=== PATIENT | female | born 1950 | race Hispanic/Latino ===

== ENCOUNTER 2021-07-03 09:08 | Emergency (ER) | payer OTHER ==
[~2021-07-03] VITALS: Ht 162.6 cm; Wt 91.6 kg
[2021-07-03] MEDS ORDERED: OXYCODONE/ACETAMIN 5/325MG TAB PO ONE (09:30)
[2021-07-03] MEDS ORDERED: IBUP-2070 PO (11:01)
[2021-07-03] MEDS ORDERED: CYCL10TA16 PO (11:01)
[2021-07-03 11:13] VITALS: BP 170/100
== END 2021-07-03 11:14 | disposition home or self-care (01) ==
LOC: EDH 09:08
DX: S60.221A Contusion of right hand, initial encounter (principal); S50.01XA Contusion of right elbow, initial encounter; S20.211A Contusion of right front wall of thorax, initial encounter; M54.50 Low back pain, unspecified; I10 Essential (primary) hypertension; Z79.1 Long term (current) use of non-steroidal anti-inflammatories (NSAID); X58.XXXA Exposure to other specified factors, initial encounter; Y93.89 Activity, other specified; Y92.89 Other specified places as the place of occurrence of the external cause; Y99.8 Other external cause status
CPT/HCPCS: 71046; 73080; 73130